=== PATIENT | female | born 2000 | race Caucasian/White ===

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

== ENCOUNTER 2021-05-31 15:18 | Emergency (ER) | payer OTHER ==
[~2021-05-31] VITALS: Ht 160 cm; Wt 77.3 kg
[2021-05-31 16:58] VITALS: BP 117/83
== END 2021-05-31 17:10 | disposition home or self-care (01) ==
LOC: EMS 15:23
DX: Z32.02 Encounter for pregnancy test, result negative (principal); Z91.012 Allergy to eggs; Z79.899 Other long term (current) drug therapy
CPT/HCPCS: 99283

== ENCOUNTER 2021-09-25 19:20 | Emergency (ER) | payer OTHER ==
[~2021-09-25] VITALS: Ht 165.1 cm; Wt 90.9 kg
[2021-09-25 20:40] LABS: BASOPHILS % (AUTO) 0.6 % (0.0-2.0); EOSINOPHILS % (AUTO) 1.4 % (1.0-6.0); HEMATOCRIT 34.6 % (36-46); HEMOGLOBIN 11.4 g/dL (12.0-16.0); LYMPHOCYTES # (AUTO) 1.7 K/uL (1.0-4.8); MEAN CORPUSCULAR HEMOGLOBIN 27.3 pg (26.0-34.0); MEAN CORPUSCULAR HGB CONC 32.9 G/dL (31.0-37.0); MEAN CORPUSCULAR VOLUME 83 fL (80-100); MONOCYTES # (AUTO) 0.5 K/uL (0.1-1.0); MONOCYTES % (AUTO) 9.4 % (2.0-9.0); NEUTROPHILS # (AUTO) 3.3 K/uL (1.8-7.7); NEUTROPHILS % (AUTO) 58.6 % (40.0-70.0); PLATELET COUNT (AUTO) 253 K/uL (150-450); RED BLOOD CELL COUNT(AUTO) 4.18 MIL/uL (4.00-5.20); RED CELL DISTRIBUTION WIDTH 14.3 % (11.5-14.5)
[2021-09-25 20:52] LABS: ANION GAP 9 mmol/L (8-16); CALCIUM, TOTAL 9.1 mg/dL (8.8-10.5); CARBON DIOXIDE 27 mmol/L (22-29); CHLORIDE 106 mmol/L (98-107); CREATININE 0.68 mg/dL (0.60-1.30); GLOMERULAR FILTR. RATE CALC > 60 mL/min (>60); GLUCOSE,RANDOM 101 mg/dL (70-110); POTASSIUM 4.1 mmol/L (3.5-5.1); SODIUM SERUM 142 mmol/L (136-145); UREA NITROGEN, BLOOD 9 mg/dL (7-18)
[2021-09-25 21:05] LABS: HCG,QUANTITATIVE < 1 mIU/mL (0-6)
[2021-09-25 21:10] LABS: COVID AG,FIA SOURCE NASOPHARYNGEAL
[2021-09-25 22:31] VITALS: BP 115/79
== END 2021-09-25 22:35 | disposition home or self-care (01) ==
LOC: EMS 19:23
DX: R07.9 Chest pain, unspecified (principal); Z20.822 Contact with and (suspected) exposure to COVID-19; E06.3 Autoimmune thyroiditis
CPT/HCPCS: 71045; 80048; 84484; 84702; 85025; 93005; 99285; 36415-L1; 36415-TC